=== PATIENT | male | born 1965 | race Caucasian/White ===

== ENCOUNTER 2017-02-12 19:51 | Observation (INO) | payer MEDICARE, OTHER ==
[2017-02-12 19:55] VITALS: BMI 32.5
[2017-02-12 20:00] VITALS: TEMP 98.5
[2017-02-12] MEDS ORDERED: Sodium Chloride 0.9% 1,000 ML IV STA (20:05)
[2017-02-12 20:26] LABS: ADD MANUAL DIFF? NO
[2017-02-12 20:31] LABS: VENOUS BLOOD GAS BASE EXCESS 5.1 mmol/L (0.0-2.0); VENOUS BLOOD PH 7.31 (7.32-7.43)
[2017-02-12 20:39] LABS: BASO # 0.02 K/mm3 (0.0-2.0); BASO % 0.4 % (0.0-3.0); EOS # 0.2 (0.0-0.7); EOS % 2.8 % (1.5-5.0); GRAN # 2.27 (1.4-6.5); HEMATOCRIT 41.5 % (42.0-52.0); LYMPH % 51.9 % (22.0-35.0); MEAN CORPUSCULAR HEMOGLOBIN 30.6 pg (25.0-35.0); MEAN PLATELET VOLUME 11.1 fl (7.0-11.0); MONO # 0.3 (0.1-0.6); MONO % 4.9 % (1.0-6.0); PLATELET COUNT 160 10^3/uL (120.0-450.0); RED CELL DISTRIBUTION WIDTH 12.7 % (11.5-14.5); WHITE BLOOD COUNT 5.7 10^3/ul (4.5-11.0)
[2017-02-12 20:40] LABS: ALB/GLOB RATIO 1.4 (1.1-1.8); ALKALINE PHOSPHATASE 110 U/L (38-133); ALT/SGPT 46 U/L (7-56); AMYLASE 117 U/L (35-125); AST/SGOT 27 U/L (15-59); BILIRUBIN,TOTAL 1.1 mg/dL (0.2-1.3); BLOOD UREA NITROGEN 11 mg/dL (7-21); CALCIUM 9.4 mg/dL (8.4-10.5); CARBON DIOXIDE 29 mmol/L (21-33); CHLORIDE 104 mmol/L (98-107); GFR AFRICAN-AMERICAN > 60; GLUCOSE,RANDOM 93 mg/dL (70-110); LIPASE 221 U/L (23-300); POTASSIUM 4.1 mmol/L (3.6-5.0); SODIUM 142 mmol/L (132-148); TOTAL PROTEIN 7.6 g/dL (5.8-8.3)
--- NOTE | 2017-02-12 20:55 | ED PDOC ---
Arrival/HPI - General Historian: Patient - History of Present Illness Time/Duration: Other (3-4 days) Symptom Course: Intermittent, Worsening Quality: Fullness - General Chief Complaint: GI Problem Time Seen by Provider: 02/12/17 20:00 - History of Present Illness Narrative History of Present Illness (Text): 02/12/17 20:49 52-year-old male presents today with a 3 to four-day history of abdominal pain. Patient states about 4 days ago he started with pain periumbilical and right lower quadrant. Patient states over the past few days the pain is intermittent. Patient states the pain feels like his belly is expanding and will explode. Patient with prior open abdominal surgery for gangrene. Denies chest pain or shortness of breath. Denies fevers or chills. Denies urinary symptoms. Patient complaining of hemorrhoids and painful defecation. No medications taken for pain at home. No other complaints (Azoia,Jessica T) Past Medical History - Provider Review Nursing Documentation Reviewed: Yes - Travel History Have you recently traveled outside [place] w/in the past 3 mons?: No - Past History Past History: No Previous - Infectious Disease Hx of Infectious Diseases: None - Tetanus Immunization Tetanus Immunization: Up to Date - Reproductive Currently : No - Cardiac Hx Hypertension: Yes Hx Pacemaker: No - Pulmonary Hx Respiratory Disorders: No - Neurological Hx Neurological Disorder: No - HEENT Hx HEENT Disorder: No - Renal Hx Renal Disorder: No - Endocrine/Metabolic Hx Endocrine Disorders: No - Hematological/Oncological Hx Blood Disorders: Yes Hx Blood Transfusions: Yes (1983 MULTILPE) - Integumentary Hx Dermatological Disorder: No - Musculoskeletal/Rheumatological Hx Musculoskeletal Disorders: Yes - Gastrointestinal Hx Gastrointestinal Disorders: Yes Other/Comment: Intestinal gangrene - Genitourinary/Gynecological Hx Genitourinary Disorders: No - Psychiatric Hx Psychophysiologic Disorder: No Hx Emotional Abuse: No Hx Physical Abuse: No Hx Substance Use: No - Surgical History Hx Cholecystectomy: Yes Other/Comment: Colon Resection - Anesthesia Hx Anesthesia: Yes Hx Anesthesia Reactions: No Hx Malignant Hyperthermia: No - Suicidal Assessment Feels Threatened In Home Enviroment: No Family/Social History - Physician Review Nursing Documentation Reviewed: Yes Family/Social History: Unknown Family HX Smoking Status: Never Smoked Hx Alcohol Use: Yes (BINGE DRINKING 3X MONTH- QUIT 5 YRS AGO) Frequency of alcohol use: Socially Hx Substance Use: No Hx Substance Use Treatment: No Allergies/Home Meds Allergies/Adverse Reactions: Allergies No Known Allergies Allergy (Verified 01/13/16 23:48) Home Medications: Home Meds Medication Instructions Recorded Confirmed amLODIPine [Norvasc] 5 mg PO QAM 04/11/15 02/12/17 Lisinopril [Prinivil] 1 tab PO DAILY 02/12/17 02/12/17 Review of Systems - Review of Systems Constitutional: absent: Fatigue, Fevers Respiratory: absent: SOB, Cough Cardiovascular: absent: Chest Pain, Palpitations Gastrointestinal: Abdominal Pain, Nausea, Hematochezia. absent: Constipation, Diarrhea, Vomiting, Appetite Changes Genitourinary Male: absent: Dysuria, Frequency, Hematuria Musculoskeletal: absent: Arthralgias, Neck Pain Skin: absent: Rash, Pruritis Neurological: absent: Headache, Dizziness Physical Exam Vital Signs Reviewed: Yes Temperature: Afebrile Blood Pressure: Normal Pulse: Regular Respiratory Rate: Normal Appearance: Positive for: Well-Appearing, Non-Toxic, Comfortable Pain Distress: None Mental Status: Positive for: Alert and Oriented X 3 - Systems Exam Head: Present: Atraumatic Mouth: Present: Moist Mucous Membranes Neck: Present: Normal Range of Motion Respiratory/Chest: Present: Clear to Auscultation, Good Air Exchange. No: Respiratory Distress, Accessory Muscle Use Cardiovascular: Present: Regular Rate and Rhythm, Normal S1, S2. No: Murmurs Abdomen: Present: Tenderness (+ diffuse tenderness; ), Normal Bowel Sounds. No : Distention, Peritoneal Signs, Rebound, Guarding Back: Present: Normal Inspection. No: CVA Tenderness, Midline Tenderness Neurological: Present: GCS=15, CN II-XII Intact, Speech Normal Skin: Present: Warm, Dry Psychiatric: Present: Alert, Oriented x 3 Medical Decision Making ED Course and Treatment: 02/12/17 21:02 Patient is nontoxic well appearing with stable vital signs presenting with 3-4 day history of abdominal pain CBC wnl CMP wnl Amylase wnl Lipase wnl Urinalysis: wnl EKG sinus rhythm with first-degree AV block at 64 bpm normal axis normal intervals no ST elevations CAT scan:FINDINGS: Lower thorax: No acute findings. ABDOMEN: Liver: The liver is heterogenous in appearance. Gallbladder and bile ducts: Status post cholecystectomy. No ductal dilation. Pancreas: Pancreas evaluation is limited. No ductal dilation. Spleen: Unremarkable. No splenomegaly. Adrenals: Unremarkable. No mass. Kidneys and ureters: 1.8 cm indeterminate lesion in the lower pole of the right kidney. Diagnostic considerations are complex cyst versus solid lesion is not excluded. Further evaluation is advised. Sub centimeter low-density lesion in the kidney is cannot be characterized. Non- obstructing tiny calculus is noted in the left kidney. Stomach and bowel: Bowel evaluation limited there is mild wall thickening noted involving the distal small bowel , under distended. However in appropriate clinical setting enteritis is not excluded. Appendix: No findings to suggest acute appendicitis. PELVIS: Bladder: There is slight focal wall thickening of the bladder anterolaterally. Ultrasound correlation is advised Reproductive: Unremarkable as visualized. ABDOMEN and PELVIS: Intraperitoneal space: Unremarkable. No free air. No significant fluid collection. Bones/joints: No acute fracture. No dislocation. Soft tissues: Bilateral inguinal hernias containing fat. Vasculature: Unremarkable. No abdominal aortic aneurysm. Lymph nodes: Unremarkable. No enlarged lymph nodes. IMPRESSION: 1. 1.8 cm indeterminate lesion in the lower pole of the right kidney. Diagnostic considerations are complex cyst versus solid lesion is not excluded. Further evaluation is advised. 2. There is slight focal wall thickening of the bladder anterolaterally. Ultrasound correlation is advised . there is mild wall thickening noted involving the distal small bowel , under distended. However in appropriate clinical setting ,enteritis is not excluded. Patient reassessment: pt feeling better after medications. Discussed all results with patient in depth. advised f/u with pmd regarding CT findings of lesions on right kidney; advised immediate return if symptoms worsen ,persist or if new symptoms develop. Patient verbalizes understanding of discharge instructions and need for immediate followup. all aspects of this case were discussed the attending of record. Impression: Abdominal pain, kidney lesion Motrin every 6 hours as needed for pain Increase fluids Follow up with primary care physician within the next 2 days Return immediately if symptoms worsen persist or if new symptoms develop: High fevers, increasing pain, vomiting, diarrhea or any other concerning symptoms develop (Jessica Nassar) - RAD Interpretation Radiology Orders: 02/12/17 20:05 ABD & PELVIS IV CONTRAST ONLY [CT] Stat - Medication Orders Current Medication Orders: Discontinued Medications Sodium Chloride (Sodium Chloride 0.9%) 1,000 mls @ 999 mls/hr IV .Q1H1M STA Stop: 02/12/17 21:05 Last Admin: 02/12/17 20:27 Dose: 999 mls/hr Iohexol (Omnipaque 350 100 Ml) Confirm Administered Dose 350 mg .ROUTE .STK-MED ONE Stop: 02/12/17 21:08 Ketorolac Tromethamine (Toradol) 30 mg IVP STAT STA Stop: 02/12/17 20:06 Last Admin: 02/12/17 20:27 Dose: 30 mg Re-Assess: NAVIN Pain Assessment Document 02/12/17 21:27 HI (Rec: 02/12/17 21:35 ND [id number]) Pain Reassessment Is this a pain reassessment? Yes Sleep Is patient sleeping during reassessment? No Presence of Pain Presence of Pain No ED OBSERVATION Discharge: Yes Date of observation admission: 02/12/17 Time of observation admission: 20:05 - Observation admission statement Patient is being placed in observation because:: abdominal pain (Jessica Nassar) - Goals of Observation Goals of observation are:: improvement in pain (Jessica Nassar) - Progress Note Progress Note: 02/13/17 22:00 pt non toxic well appearing; no distress. 02/13/17 00:03 pt feeling better; vitals stable; discussed all results. advised f/u with pmd. ( Jessica Nassar) Disposition/Present on Arrival - Present on Arrival Any Indicators Present on Arrival: No History of DVT/PE: No History of Uncontrolled Diabetes: No Urinary Catheter: No History of Decub. Ulcer: No History Surgical Site Infection Following: None - Disposition Have Diagnosis and Disposition been Completed?: Yes Disposition Time: 00:03 Patient Plan: Discharge - Disposition Diagnosis: Abdominal pain, Kidney lesion Disposition: HOME/ ROUTINE Condition: GOOD
[2017-02-12] MEDS ORDERED: Iohexol 350 MG/100 ML VIAL ONE (21:07)
[2017-02-12 23:12] LABS: URINE BILIRUBIN NEGATIVE (NEGATIVE); URINE BLOOD NEGATIVE (NEGATIVE); URINE GLUCOSE (UA) NEGATIVE (NEGATIVE); URINE KETONE NEGATIVE (NEGATIVE); URINE LEUKOCYTE ESTERASE NEGATIVE Leu/uL (NEGATIVE); URINE PROTEIN NEGATIVE mg/dL (<30 mg/dL); URINE UROBILINOGEN 0.2 E.U./dL (<1 E.U./dL)
[2017-02-12 23:17] VITALS: BP 138/84; PULSE 61; RESP 16; O2SAT 99
[2017-02-12 23:38] LABS: URINE APPEARANCE CLEAR (CLEAR); URINE COLOR YELLOW (YELLOW)
--- NOTE | 2017-02-13 08:28 | CT ---
PROCEDURE: CT Abdomen and Pelvis with contrast HISTORY: abd pain x 3-4 days, periumbilical, right sided COMPARISON: 01/14/2016. TECHNIQUE: Contrast dose: 100 cc of Omnipaque 350 Radiation dose: Total exam DLP = 1225 mGy-cm. This CT exam was performed using one or more of the following dose reduction techniques: Automated exposure control, adjustment of the mA and/or kV according to patient size, and/or use of iterative reconstruction technique. FINDINGS: LOWER THORAX: Unremarkable. LIVER: Unremarkable. No gross lesion or ductal dilatation. GALLBLADDER AND BILE DUCTS: Cholecystectomy. PANCREAS: Unremarkable. No gross lesion or ductal dilatation. SPLEEN: Unremarkable. ADRENALS: Unremarkable. No mass. KIDNEYS AND URETERS: 2 centimeter right lower pole renal cyst.. No hydronephrosis. No solid mass. VASCULATURE: Unremarkable. No aortic aneurysm. BOWEL: Unremarkable. No obstruction. No gross mural thickening. APPENDIX: Normal appendix. PERITONEUM: Unremarkable. No free fluid. No free air. LYMPH NODES: Unremarkable. No enlarged lymph nodes. BLADDER: Unremarkable. REPRODUCTIVE: Unremarkable. BONES: No acute fracture. OTHER FINDINGS: None. IMPRESSION: 2 centimeter right lower pole renal cyst..
--- NOTE | 2017-02-13 09:41 | RAD ---
PROCEDURE: CHEST RADIOGRAPH, 1 VIEW HISTORY: abd pain COMPARISON: None available. FINDINGS: LUNGS: Clear. PLEURA: No pneumothorax or pleural fluid seen. CARDIOVASCULAR: Mild cardiomegaly. Mild aortic tortuosity OSSEOUS STRUCTURES: Old rib fracture on the left VISUALIZED UPPER ABDOMEN: Normal. OTHER FINDINGS: None. IMPRESSION: No active disease.
--- NOTE | 2017-02-13 12:08 | CARD ---
APPROVED REPORT EKG Measurement Heart [id number] <Conclusion> Sinus rhythm with 1st degree AV block Otherwise normal ECG
== END 2017-02-13 00:04 | disposition home or self-care (01) ==
LOC: ED 19:51 → EROBSV 20:05
PROVIDERS: ADMIT Emergency Medicine; ATTEND Emergency Medicine
DX: N28.9 Disorder of kidney and ureter, unspecified (principal); R10.9 Unspecified abdominal pain
CPT/HCPCS: 71010; 74177; 80053; 81003; 82150; 82803; 83690; 85025; 93005; 96374; 99283; G0378; J1885; J7040; Q9967

== ENCOUNTER 2017-06-12 07:46 | Day surgery (SDC) | payer MEDICARE, OTHER ==
[2017-06-04 11:06] VITALS: BMI 33.8
[2017-06-12] MEDS ORDERED: Sodium Chloride 0.9% 1,000 ML IV SCH (09:15)
[2017-06-12] MEDS ORDERED: Midazolam 2 MG/2 ML VIAL ONE (09:52)
[2017-06-12] MEDS ORDERED: Propofol 10 mg/ml Inj (20 ML) ONE ×2 (09:52→10:06)
[2017-06-12 11:13] VITALS: TEMP 97.9; O2SAT 98
[2017-06-12 11:36] VITALS: RESP 18
[2017-06-12 12:22] VITALS: BP 121/72; PULSE 62
== END 2017-06-12 11:33 | disposition home or self-care (01) ==
LOC: ENDO 07:46
PROVIDERS: ATTEND Specialist
DX: Z12.11 Encounter for screening for malignant neoplasm of colon (principal); K64.8 Other hemorrhoids
CPT/HCPCS: 45378; J2250; J2704; J7040 ×2

== ENCOUNTER 2017-07-21 07:33 | Day surgery (SDC) | payer MEDICARE, OTHER ==
[2017-06-25 10:46] VITALS: BMI 33.8
[2017-07-21] MEDS ORDERED: Propofol 10 mg/ml Inj (20 ML) ONE (09:22)
[2017-07-21] MEDS ORDERED: Midazolam 2 MG/2 ML VIAL ONE (09:22)
[2017-07-21] MEDS ORDERED: Bupivacaine 0.5% Inj(30mL) ONE (09:24)
[2017-07-21] MEDS ORDERED: Lidocaine 1% Inj (20ml) ONE (09:25)
[2017-07-21] MEDS ORDERED: Bacitracin Ointment 30 GM TUBE ONE (10:01)
[2017-07-21] MEDS ORDERED: Lactated Ringer's 1,000 ML IV SCH (10:15)
--- NOTE | 2017-07-21 10:19 | PCM.SURG1 ---
Surgeon's Initial Post Op Note - Surgeon's Notes Surgeon: Emmanuel Stock Parts Inspector: PGY4, Luz Marina PGY1 Type of Anesthesia: MAC Pre-Operative Diagnosis: Internal Hemrrhoid Operative Findings: Anal Fissure Post-Operative Diagnosis: Anal stenosis, anal fissure Operation Performed: Posterolateral sphincterotomy Specimen/Specimens Removed: none Estimated Blood Loss: EBL {In ML}: 1 Blood Products Given: N/A Drains Used: No Drains Post-Op Condition: Good Date of Surgery/Procedure: 07/21/17 Time of Surgery/Procedure: 10:18
[2017-07-21 11:01] VITALS: O2SAT 98
[2017-07-21] MEDS ORDERED: Oxycodone/Acetaminophen 5/325 mg Tab PO STA (11:41)
[2017-07-21] MEDS ORDERED: Oxycodone/Acetaminophen 5/325 mg Tab ONE (11:44)
[2017-07-21 11:50] VITALS: BP 121/73; RESP 18
[2017-07-21 12:30] VITALS: PULSE 64; TEMP 98
--- NOTE | 2017-07-25 10:34 | OP ---
PROCEDURE DATE: 07/21/2017 PREOPERATIVE DIAGNOSIS: Anal fissure with hemorrhoid. SURGEON: Kiran Benitez MD DESCRIPTION OF PROCEDURE: In the operating room, the patient was identified by name, name of the procedure, laterality, and my jovanni. The patient was placed in lithotomy position and there were large external tags. Internally, there were several internal hemorrhoids, but posteriorly you could see an open area of a tear. The sigmoidoscopy was otherwise unremarkable. Anoscopy was otherwise unremarkable. There was a small internal hemorrhoid that was left in-situ. Posteriorly, you could see an ulcer that was clean based with some granulation, but mostly open, clearly the source of the pain. A lateral sphincterotomy was performed injecting the area with 30 mL of 0.25 Marcaine with epinephrine and a block on either side. An 11 blade was then plunged into the area posterolaterally and seen to close the cut through lateral edge of the muscle very nicely. This was done in a closed position. Bleeding responded to an external stitch of 0 chromic. There was anal stenosis that was dilated with two fingers. Ointments were applied and the patient was taken to recovery room in good condition. All instruments and counts were correct. Kiran Benitez MD
== END 2017-07-21 12:30 | disposition home or self-care (01) ==
LOC: SDS 07:33
PROVIDERS: ATTEND Surgery
DX: K60.2 Anal fissure, unspecified (principal); K62.4 Stenosis of anus and rectum; K64.8 Other hemorrhoids; K64.4 Residual hemorrhoidal skin tags
CPT/HCPCS: 46080; J0690; J1885; J2001; J2250; J2704; J3010; J7120 ×2

== ENCOUNTER 2017-10-30 15:16 | Emergency (ER) | payer MEDICARE, OTHER ==
[2017-10-30 15:16] VITALS: BMI 33.8
--- NOTE | 2017-10-30 15:50 | ED PDOC ---
Arrival/HPI - General Chief Complaint: Lower Extremity Problem/Injury Time Seen by Provider: 10/30/17 15:41 Historian: Patient - History of Present Illness Narrative History of Present Illness (Text): 10/30/17 15:47 A 52 year old male presents to the emergency department complaining of bilateral leg swelling for the past 2 weeks. Patient reports his symptoms began shortly after rotator cuff surgery performed on 10/17/17. Patient denies any fever, chills, nausea, vomiting, abdominal pain, chest pain, shortness of breath , or any other complaints. He reports that his surgeon told him that he could get some leg swelling after surgery 10/30/17 19:37 Time/Duration: Other (2 weeks) Symptom Course: Unchanged Past Medical History - Provider Review Nursing Documentation Reviewed: Yes - Past History Past History: No Previous - Infectious Disease Hx of Infectious Diseases: None - Tetanus Immunization Tetanus Immunization: Up to Date - Cardiac Hx Cardiac Disorders: Yes Hx Hypertension: Yes - Pulmonary Hx Respiratory Disorders: No - Neurological Hx Neurological Disorder: No - HEENT Hx HEENT Disorder: No - Renal Hx Renal Disorder: No - Endocrine/Metabolic Hx Endocrine Disorders: No - Hematological/Oncological Hx Blood Disorders: Yes Hx Blood Transfusions: Yes (1983) - Integumentary Hx Dermatological Disorder: No - Musculoskeletal/Rheumatological Hx Musculoskeletal Disorders: Yes Hx Fractures: Yes Other/Comment: L SHOULDER INJURY - Gastrointestinal Hx Gastrointestinal Disorders: Yes Other/Comment: Intestinal gangrene - Genitourinary/Gynecological Hx Genitourinary Disorders: No - Psychiatric Hx Psychophysiologic Disorder: Yes Hx Bipolar Disorder: Yes Hx Substance Use: No - Surgical History Hx Orthopedic Surgery: Yes (L SHOULDER) Other/Comment: R/T TRAUMA - Anesthesia Hx Anesthesia: Yes Hx Anesthesia Reactions: No Hx Malignant Hyperthermia: No - Suicidal Assessment Feels Threatened In Home Enviroment: No Family/Social History - Physician Review Nursing Documentation Reviewed: Yes Family/Social History: No Known Family HX Smoking Status: Never Smoked Hx Alcohol Use: Yes (BINGE DRINKING 3X MONTH- QUIT OVER 5 YRS AGO) Hx Substance Use: No Hx Substance Use Treatment: No Allergies/Home Meds Allergies/Adverse Reactions: Allergies No Known Allergies Allergy (Verified 10/30/17 15:20) Home Medications: Home Meds Medication Instructions Recorded Confirmed oxyCODONE/Acetaminophen [Percocet 1 tab PO Q4 PRN 07/21/17 10/30/17 5/325 mg Tab] Divalproex [Depakote DR(*BID*)] 500 mg PO TID 10/30/17 10/30/17 Review of Systems - Physician Review All systems were reviewed & negative as marked: Yes - Review of Systems Constitutional: absent: Fevers, Night Sweats Respiratory: absent: SOB Cardiovascular: absent: Chest Pain Gastrointestinal: absent: Abdominal Pain, Nausea, Vomiting Skin: Other (Bilateral leg swelling) Physical Exam Vital Signs Reviewed: Yes Vital Signs Temp Pulse Resp BP Pulse Ox 10/30/17 17:16 98 F 71 18 122/90 99 10/30/17 16:08 134/93 H 10/30/17 15:23 99.1 F 97 H 16 116/77 95 Temperature: Afebrile Blood Pressure: Normal Pulse: Tachycardic Respiratory Rate: Normal Appearance: Positive for: Well-Appearing, Non-Toxic, Comfortable Pain Distress: None Mental Status: Positive for: Alert and Oriented X 3 - Systems Exam Head: Present: Atraumatic, Normocephalic Pupils: Present: PERRL Extroacular Muscles: Present: EOMI Conjunctiva: Present: Normal Mouth: Present: Moist Mucous Membranes Respiratory/Chest: Present: Clear to Auscultation, Good Air Exchange. No: Respiratory Distress, Accessory Muscle Use Cardiovascular: Present: Regular Rate and Rhythm, Normal S1, S2. No: Murmurs Abdomen: Present: Normal Bowel Sounds. No: Tenderness, Distention, Peritoneal Signs Upper Extremity: Present: Normal Inspection. No: Cyanosis, Edema Lower Extremity: Present: Edema (Bilateral pitting edema), NORMAL PULSES. No: CALF TENDERNESS Neurological: Present: GCS=15, CN II-XII Intact, Speech Normal Skin: Present: Warm, Dry, Normal Color. No: Rashes Psychiatric: Present: Alert, Oriented x 3, Normal Insight, Normal Concentration Medical Decision Making ED Course and Treatment: 10/30/17 15:47 Impression: A 52 year old male with bilateral lower extremity swelling. No chest pain or shortness of breath. Plan: -- Duplex lower extremity ultrasound -- Chest xray -- EKG -- Labs -- Lasix -- Reassess and disposition Progress Notes: Report Date : 10/30/2017 16:14:47 Procedure: Chest xray Dictator : Stanford Purdy MD IMPRESSION: No active disease. EKG shows NSR at 81bpm with 1st degree AV block. Otherwise WNL 10/30/17 18:13 DVT study negative b/l. Chemistry WNL. BNP WNL. Patient was told that this could happen post-op and reports that he has not been compliant with elevation and rest as recommended.. Some improvement after lasix - Lab Interpretations Lab Results: 10/30/17 15:55 10/30/17 15:55 Lab Results 10/30/17 15:55: Sodium 143, Potassium 3.6, Chloride 105, Carbon Dioxide 30, Anion Gap 11, BUN 16, Creatinine 1.0, Est GFR ( Amer) > 60, Est GFR (Non- Af Amer) > 60, Random Glucose 100, Calcium 9.9, Total Bilirubin 0.5, AST 47, ALT 56, Alkaline Phosphatase 96, Troponin I < 0.01, NT-Pro-B Natriuret Pep 43.6 , Total Protein 6.8, Albumin 3.9, Globulin 2.9, Albumin/Globulin Ratio 1.4 10/30/17 15:55: WBC 6.3 D, RBC 4.16, Hgb 12.5 L, Hct 38.2 L, MCV 91.8, MCH 30.0 , MCHC 32.7, RDW 12.7, Plt Count 172, MPV 11.1 H, Gran % 54.5, Lymph % (Auto) 37.5 H, [place] % (Auto) 6.5 H, Eos % (Auto) 1.3 L, Baso % (Auto) 0.2, Gran # 3.43 , Lymph # (Auto) 2.4, [place] # (Auto) 0.4, Eos # (Auto) 0.1, Baso # (Auto) 0.01 - RAD Interpretation Radiology Orders: 10/30/17 15:47 CHEST PORTABLE [RAD] Stat DUPLEX LOWER EXTRM VEIN BILAT [US] Stat - Medication Orders Current Medication Orders: Discontinued Medications Furosemide (Lasix) 40 mg IVP STAT STA Stop: 10/30/17 15:48 Last Admin: 10/30/17 16:08 Dose: 40 mg MAR Blood Pressure Document 10/30/17 16:08 LA (Rec: 10/30/17 16:13 CODY [id number]) Blood Pressure Blood Pressure (100/60-150/90) 134/93 IVP Administration Document 10/30/17 16:08 CODY (Rec: 10/30/17 16:13 CODY [id number]) Charges for Administration # of IVP Administrations 1 - Scribe Statement The provider has reviewed the documentation as recorded by the Scribe Sobia Hewitt Provider Scribe Attestation: All medical record entries made by the Scribe were at my direction and personally dictated by me. I have reviewed the chart and agree that the record accurately reflects my personal performance of the history, physical exam, medical decision making, and the department course for this patient. I have also personally directed, reviewed, and agree with the discharge instructions and disposition. Disposition/Present on Arrival - Present on Arrival Any Indicators Present on Arrival: No History of DVT/PE: No History of Uncontrolled Diabetes: No Urinary Catheter: No History of Decub. Ulcer: No History Surgical Site Infection Following: None - Disposition Have Diagnosis and Disposition been Completed?: Yes Diagnosis: Lower extremity edema Disposition: HOME/ ROUTINE Disposition Time: 18:13 Patient Plan: Discharge Condition: GOOD Discharge Instructions (ExitCare): Dependent Edema (DC) Additional Instructions: Follow-up with PMD within 2 days. Return to ED if condition worsens. Keep legs elevated Referrals: Carly Rolon, [Primary Care Provider] - Follow up with primary Forms: [employer] ([place])
--- NOTE | 2017-10-30 16:16 | RAD ---
HISTORY: leg swelling COMPARISON: 10/02/2017 FINDINGS: LUNGS: No active pulmonary disease. PLEURA: No significant pleural effusion identified, no pneumothorax apparent. CARDIOVASCULAR: Normal. OSSEOUS STRUCTURES: Deformity of left chest wall with old fracture of left 6th rib. VISUALIZED UPPER ABDOMEN: Normal. OTHER FINDINGS: None. IMPRESSION: No active disease.
[2017-10-30 16:17] LABS: BASO # 0.01 K/mm3 (0.0-2.0); BASO % 0.2 % (0.0-3.0); EOS # 0.1 (0.0-0.7); EOS % 1.3 % (1.5-5.0); GRAN # 3.43 (1.4-6.5); GRAN % 54.5 % (50.0-68.0); HEMOGLOBIN 12.5 g/dL (14.0-18.0); LYMPH # 2.4 (1.2-3.4); LYMPH % 37.5 % (22.0-35.0); MEAN CELL VOLUME 91.8 fl (80.0-105.0); MEAN CORPUSCULAR HGB CONC 32.7 g/dl (31.0-37.0); MEAN PLATELET VOLUME 11.1 fl (7.0-11.0); MONO # 0.4 (0.1-0.6); MONO % 6.5 % (1.0-6.0); RBC 4.16 10^6/uL (3.5-6.1); RED CELL DISTRIBUTION WIDTH 12.7 % (11.5-14.5); WHITE BLOOD COUNT 6.3 10^3/ul (4.5-11.0)
[2017-10-30 16:35] LABS: ALB/GLOB RATIO 1.4 (1.1-1.8); ALBUMIN 3.9 g/dL (3.0-4.8); ALT/SGPT 56 U/L (7-56); AST/SGOT 47 U/L (17-59); BLOOD UREA NITROGEN 16 mg/dL (7-21); CALCIUM 9.9 mg/dL (8.4-10.5); GFR AFRICAN-AMERICAN > 60; GFR NON-AFRICAN AMERICAN > 60
[2017-10-30 16:39] LABS: B-TYPE NATRIURETIC PEPTIDE 43.6 pg/mL (0-450); TROPONIN I < 0.01 ng/mL
[2017-10-30 18:34] VITALS: BP 122/90; PULSE 71; RESP 18; TEMP 98; O2SAT 99
--- NOTE | 2017-10-30 22:01 | US ---
HISTORY: Leg pain and swelling. Evaluate for DVT PHYSICIAN(S): Stanford Carson MD. TECHNIQUE: Duplex sonography and color-flow Doppler with graded compression were used to evaluate the deep venous systems of both lower extremities. FINDINGS: The visualized deep venous systems of both lower extremities are sonographically normal and compressible. Normal wave forms and augmentation are seen. There is no sonographic evidence for deep venous thrombosis in the visualized segments of both lower extremities. IMPRESSION: No sonographic evidence for deep venous thrombosis in the visualized segments of both lower extremities.
== END 2017-10-30 18:33 | disposition home or self-care (01) ==
LOC: ED 15:16
DX: R60.0 Localized edema (principal); I10 Essential (primary) hypertension
CPT/HCPCS: 71045; 80053; 83880; 84484; 85025; 93970; 96374; 99284; J1940

== ENCOUNTER 2018-01-29 02:32 | Emergency (ER) | payer MEDICARE, OTHER ==
[2018-01-29 02:41] VITALS: BMI 30.7
--- NOTE | 2018-01-29 02:56 | ED PDOC ---
Arrival/HPI - General Chief Complaint: Abnormal Skin Integrity Time Seen by Provider: 01/29/18 02:40 Historian: Patient - History of Present Illness Narrative History of Present Illness (Text): 01/29/18 02:55 Nael Reina is a 52 year old male, whose past medical history includes hypertension, who presents to the Emergency department complaining of a dry, cracked callus to the left heel for the last few months. Patient denies any history of trauma/injury, redness to the area, weakness/numbness/tingling in the extremity, or any other complaints. Symptom Onset: Gradual Symptom Course: Unchanged Activities at Onset: Light Context: Home Past Medical History - Provider Review Nursing Documentation Reviewed: Yes - Past History Past History: No Previous - Infectious Disease Hx of Infectious Diseases: None - Tetanus Immunization Tetanus Immunization: Up to Date - Cardiac Hx Cardiac Disorders: Yes Hx Hypertension: Yes - Pulmonary Hx Respiratory Disorders: No - Neurological Hx Neurological Disorder: No - HEENT Hx HEENT Disorder: No - Renal Hx Renal Disorder: No - Endocrine/Metabolic Hx Endocrine Disorders: No - Hematological/Oncological Hx Blood Disorders: Yes Hx Blood Transfusions: Yes (1984) - Integumentary Hx Dermatological Disorder: No - Musculoskeletal/Rheumatological Hx Musculoskeletal Disorders: Yes Hx Fractures: Yes Other/Comment: L SHOULDER INJURY - Gastrointestinal Hx Gastrointestinal Disorders: Yes Other/Comment: Intestinal gangrene - Genitourinary/Gynecological Hx Genitourinary Disorders: No - Psychiatric Hx Psychophysiologic Disorder: Yes Hx Bipolar Disorder: Yes Hx Substance Use: No - Surgical History Hx Orthopedic Surgery: Yes (L SHOULDER) Other/Comment: R/T TRAUMA - Anesthesia Hx Anesthesia: Yes Hx Anesthesia Reactions: No Hx Malignant Hyperthermia: No - Suicidal Assessment Feels Threatened In Home Enviroment: No Family/Social History - Physician Review Nursing Documentation Reviewed: Yes Family/Social History: Unknown Family HX Smoking Status: Never Smoked Hx Alcohol Use: Yes (BINGE DRINKING 3X MONTH- QUIT OVER 5 YRS AGO) Hx Substance Use: No Hx Substance Use Treatment: No Allergies/Home Meds Allergies/Adverse Reactions: Allergies No Known Allergies Allergy (Verified 01/29/18 02:42) Home Medications: Home Meds Medication Instructions Recorded Confirmed oxyCODONE/Acetaminophen [Percocet 1 tab PO Q4 PRN 07/21/17 10/30/17 5/325 mg Tab] Divalproex [Depakote DR(*BID*)] 500 mg PO TID 10/30/17 10/30/17 Review of Systems - Physician Review All systems were reviewed & negative as marked: Yes - Review of Systems Constitutional: Normal. absent: Fevers Eyes: Normal ENT: Normal Respiratory: Normal. absent: SOB, Cough Cardiovascular: Normal. absent: Chest Pain Gastrointestinal: Normal. absent: Abdominal Pain, Diarrhea, Nausea, Vomiting Genitourinary Male: Normal. absent: Dysuria, Frequency, Hematuria, Urinary Output Changes Musculoskeletal: Normal. absent: Back Pain, Neck Pain Skin: Other (+dry, cracked callus). absent: Rash Neurological: Normal. absent: Headache, Dizziness Endocrine: Normal Hemo/Lymphatic: Normal Psychiatric: Normal Physical Exam Vital Signs Reviewed: Yes Vital Signs Pulse Resp BP Pulse Ox 01/29/18 03:05 68 18 120/79 98 Temperature: Afebrile Blood Pressure: Normal Pulse: Regular Respiratory Rate: Normal Appearance: Positive for: Well-Appearing, Non-Toxic, Comfortable Pain Distress: None Mental Status: Positive for: Alert and Oriented X 3 - Systems Exam Head: Present: Atraumatic, Normocephalic Pupils: Present: PERRL Extroacular Muscles: Present: EOMI Conjunctiva: Present: Normal Mouth: Present: Moist Mucous Membranes Neck: Present: Normal Range of Motion Lower Extremity: Present: Other (Dry skin fissure throught left calloused heel) . No: Edema Neurological: Present: GCS=15, CN II-XII Intact, Speech Normal Skin: Present: Warm, Dry, Normal Color. No: Rashes Psychiatric: Present: Alert, Oriented x 3, Normal Insight, Normal Concentration Medical Decision Making ED Course and Treatment: 01/29/18 02:55 Impression: 52 year old male complaining of a dry, cracked callus to left heel. Differential Diagnosis included but are not limited to: skin fissure vs. callous Plan: -- Reassess and disposition Progress Notes: - Scribe Statement The provider has reviewed the documentation as recorded by the Scriblashanda Vargas All medical record entries made by the Scribe were at my direction and personally dictated by me. I have reviewed the chart and agree that the record accurately reflects my personal performance of the history, physical exam, medical decision making, and the department course for this patient. I have also personally directed, reviewed, and agree with the discharge instructions and disposition. Disposition/Present on Arrival - Present on Arrival Any Indicators Present on Arrival: No History of DVT/PE: No History of Uncontrolled Diabetes: No Urinary Catheter: No History of Decub. Ulcer: No History Surgical Site Infection Following: None - Disposition Have Diagnosis and Disposition been Completed?: Yes Diagnosis: Foot callus, Skin fissure Disposition: HOME/ ROUTINE Disposition Time: 02:58 Patient Plan: Discharge Condition: GOOD Discharge Instructions (ExitCare): Corns and Calluses Additional Instructions: Apply emmolients i.e. Addie Lotion/skin creams to the area/follow up with the rag room supervisor this week Referrals: Deion Ash DPM [Staff Provider] - Follow up with primary Forms: [facility] (Bermudian), WORK NOTE
[2018-01-29 03:21] VITALS: BP 120/79; PULSE 68; RESP 18; O2SAT 98
== END 2018-01-29 03:05 | disposition home or self-care (01) ==
LOC: ED 02:32
DX: L84 Corns and callosities (principal); R23.4 Changes in skin texture

== ENCOUNTER 2018-12-20 11:04 | Emergency (ER) | payer MEDICARE, OTHER ==
[2018-12-20 11:16] VITALS: BMI 33.8
[2018-12-20 11:51] LABS: BASO # 0.01 K/mm3 (0.0-2.0); BASO % 0.2 % (0.0-3.0); EOS # 0.1 (0.0-0.7); EOS % 2.1 % (1.5-5.0); HEMOGLOBIN 13.6 g/dL (14.0-18.0); LYMPH # 1.8 (1.2-3.4); LYMPH % 41.4 % (22.0-35.0); MEAN CELL VOLUME 91.8 fl (80.0-105.0); MEAN CORPUSCULAR HEMOGLOBIN 30.3 pg (25.0-35.0); MONO # 0.2 (0.1-0.6); MONO % 4.2 % (1.0-6.0); RBC 4.49 10^6/uL (3.5-6.1); RED CELL DISTRIBUTION WIDTH 12.5 % (11.5-14.5); WHITE BLOOD COUNT 4.3 10^3/uL (4.5-11.0)
[2018-12-20 11:56] LABS: INR 1.09; PARTIAL THROMBOPLASTIN TIME 24.7 Seconds (26.9-38.3); PROTHROMBIN TIME 12.3 SECONDS (9.4-12.5)
--- NOTE | 2018-12-20 11:56 | ED PDOC ---
Arrival/HPI - General Chief Complaint: Abdominal Pain Time Seen by Provider: 12/20/18 11:13 Historian: Patient - History of Present Illness Narrative History of Present Illness (Text): 12/20/18 12:36 53 y/o male with PMH of HTN, gallstones presents to the ED c/o RLQ pain x 4 days. Pain is sharp, intermittent, worse with bending and lifting. Patient thinks he may have a hernia, states he had similar symptoms 10 years ago but ne willie had hernia repair surgery. Associated intermittent nausea and right groin pain/fullness. Denies fever, chills, chest pain, SOB, testicular pain/swelling, urinary symptoms, back pain, vomiting, SOB, cough, congestion, or any other associated complaints. Past Medical History - Provider Review Nursing Documentation Reviewed: Yes - Past History Past History: No Previous - Infectious Disease Hx of Infectious Diseases: None - Tetanus Immunization Tetanus Immunization: Up to Date - Cardiac Hx Cardiac Disorders: Yes Hx Hypertension: Yes - Pulmonary Hx Respiratory Disorders: No - Neurological Hx Neurological Disorder: No - HEENT Hx HEENT Disorder: No - Renal Hx Renal Disorder: No - Endocrine/Metabolic Hx Endocrine Disorders: No - Hematological/Oncological Hx Blood Disorders: Yes Hx Blood Transfusions: Yes (1984) - Integumentary Hx Dermatological Disorder: No - Musculoskeletal/Rheumatological Hx Musculoskeletal Disorders: Yes Hx Fractures: Yes Other/Comment: L SHOULDER INJURY - Gastrointestinal Hx Gastrointestinal Disorders: Yes Hx Gall Bladder Disease: Yes (stones) Other/Comment: Intestinal gangrene - Genitourinary/Gynecological Hx Genitourinary Disorders: No - Psychiatric Hx Psychophysiologic Disorder: Yes Hx Bipolar Disorder: Yes Hx Substance Use: No - Surgical History Hx Orthopedic Surgery: Yes (L SHOULDER) Other/Comment: R/T TRAUMA - Anesthesia Hx Anesthesia: Yes Hx Anesthesia Reactions: No Hx Malignant Hyperthermia: No - Suicidal Assessment Feels Threatened In Home Enviroment: No Family/Social History - Physician Review Nursing Documentation Reviewed: Yes Family/Social History: No Known Family HX Smoking Status: Never Smoked Hx Alcohol Use: Yes (BINGE DRINKING 3X MONTH- QUIT OVER 5 YRS AGO) Hx Substance Use: No Hx Substance Use Treatment: No Allergies/Home Meds Allergies/Adverse Reactions: Allergies No Known Allergies Allergy (Verified 12/20/18 11:06) Home Medications: Home Meds Medication Instructions Recorded Confirmed amLODIPine [Norvasc] 0 mg PO DAILY 12/20/18 12/20/18 Review of Systems - Review of Systems Constitutional: Normal. absent: Fevers Eyes: Normal. absent: Vision Changes ENT: Normal. absent: Sore Throat, Sinus Congestion Respiratory: Normal. absent: SOB, Cough Cardiovascular: Normal. absent: Chest Pain, Palpitations Gastrointestinal: Abdominal Pain, Nausea, Other (indigestion). absent: Vomiting Genitourinary Male: Other (right groin fullness). absent: Dysuria, Frequency Musculoskeletal: Normal. absent: Back Pain, Neck Pain Skin: Normal. absent: Rash Neurological: Normal. absent: Headache, Dizziness Physical Exam Vital Signs Reviewed: Yes Vital Signs Temp Pulse Resp BP Pulse Ox 12/20/18 11:09 97.7 F 55 L 19 144/82 97 Temperature: Afebrile Blood Pressure: Normal Pulse: Bradycardic Respiratory Rate: Normal Appearance: Positive for: Well-Appearing, Non-Toxic, Comfortable Pain Distress: None Mental Status: Positive for: Alert and Oriented X 3 - Systems Exam Head: Present: Atraumatic, Normocephalic Pupils: Present: PERRL Extroacular Muscles: Present: EOMI Conjunctiva: Present: Normal Mouth: Present: Moist Mucous Membranes Neck: Present: Normal Range of Motion. No: Meningeal Signs Respiratory/Chest: Present: Clear to Auscultation, Good Air Exchange. No: Respiratory Distress, Accessory Muscle Use Cardiovascular: Present: Regular Rate and Rhythm, Normal S1, S2, Peripheal Pulses Present Abdomen: Present: Tenderness (mild right groin and RLQ abdomen), Normal Bowel Sounds. No: Distention, Peritoneal Signs, Rebound, Guarding Genitourinary Male: Present: Normal External Genitalia, Hernias (right groin fullness, reducible). No: Lesions, Penile Discharge, Testicle Tenderness, Penile Swelling, Erythema, Testicle Swelling Back: Present: Normal Inspection. No: CVA Tenderness Upper Extremity: Present: Normal Inspection, Normal ROM, NORMAL PULSES, Neurovascularly Intact, Capillary Refill < 2s. No: Cyanosis, Edema, Temperature Abnormalties Lower Extremity: Present: Normal Inspection, NORMAL PULSES, Normal ROM, Neurovascularly Intact, Capillary Refill < 2 s. No: Edema, Temperature Abnormalties Neurological: Present: GCS=15, CN II-XII Intact, Speech Normal, Motor Func Grossly Intact, Normal Sensory Function, Gait Normal Skin: Present: Warm, Dry, Normal Color. No: Rashes Psychiatric: Present: Alert, Oriented x 3, Normal Insight, Normal Concentration, Normal Affect, Normal Mood Medical Decision Making ED Course and Treatment: Initial Plan: * CBC, CMP * Coags * Mg * Troponin * Lipase * EKG * CXR * Testicular US * Abd/Pelvis CT Patient refusing pain medication at this time. EKG shows sinus bradycardia at 52 with 1st degree AV block and incomplete RBBB; No STEMI, nonspecific ST/T wave changes; troponin neg Compared with prior EKG from Sep 2017 that shows bradycardia and 1st degree AV block without RBBB, similar 13:22 Bloodwork reviewed, unremarkable. No leukocytosis or electrolyte abnormalities. Urine unremarkable CXR shows no active disease CT shows constipation, bilateral inguinal hernias, and thickened bladder wall on the right side. Pt has no signs of infection in urine. Will recommend urology f/u. Ultrasound shows no torsion or findings of epididymitis/orchitis. Spoke with Dr. Rubio regarding diagnostic testing results. He states patient can be discharged home to followup in his office. Results faxed to Dr. Rubio's office. Advised pt of PMD, general surgery, and urology followup. Pt comfortable with discharge home. Educated on diet changes in constipation. Diagnostic testing results and plan of care discussed with patient. Strict instructions given regarding importance of followup, and signs/symptoms to return to ER including worsening pain, fever, or any other new/worsening symptoms. Pt verbalized understanding of discussion. Patient is A&Ox3, ambulating with steady gait, with vital signs stable for discharge. - Lab Interpretations Lab Results: 12/20/18 11:30 12/20/18 11:30 Lab Results 12/20/18 11:30: Sodium 144, Potassium 3.9, Chloride 106, Carbon Dioxide 31, Anion Gap 10, BUN 17, Creatinine 0.8, Est GFR ( Amer) > 60, Est GFR (Non- Af Amer) > 60, Random Glucose 97, Calcium 9.3, Total Bilirubin 1.0, AST 31, ALT 27, Alkaline Phosphatase 85, Troponin I < 0.01, Total Protein 7.0, Albumin 4.1, Globulin 2.9, Albumin/Globulin Ratio 1.4, Amylase 85, Lipase 143 12/20/18 11:30: Urine Color Yellow, Urine Appearance Clear, Urine pH 6.0, Ur Specific Rudy 1.015, Urine Protein Negative, Urine Glucose (UA) Negative, Urine Ketones Negative, Urine Blood Negative, Urine Nitrate Negative, Urine Bilirubin Negative, Urine Urobilinogen 0.2, Ur Leukocyte Esterase Negative 12/20/18 11:30: PT 12.3, INR 1.09, APTT 24.7 L 12/20/18 11:30: WBC 4.3 L, RBC 4.49, Hgb 13.6 L, Hct 41.2 L, MCV 91.8, MCH 30.3, MCHC 33.0, RDW 12.5, Plt Count 158, MPV 11.0, Neut % (Auto) 52.1, Lymph % (Auto) 41.4 H, [place] % (Auto) 4.2, Eos % (Auto) 2.1, Baso % (Auto) 0.2, Lymph # (Auto) 1.8, [place] # (Auto) 0.2, Eos # (Auto) 0.1, Baso # (Auto) 0.01, Absolute Neuts (auto) 2.24 I have reviewed the lab results: Yes - RAD Interpretation Narrative RAD Interpretations (Text): 12/20/18 13:09 12/20/18 11:30 12/20/18 11:30 Lab Results 12/20/18 11:30: Sodium 144, Potassium 3.9, Chloride 106, Carbon Dioxide 31, Anion Gap 10, BUN 17, Creatinine 0.8, Est GFR ( Amer) > 60, Est GFR (Non- Af Amer) > 60, Random Glucose 97, Calcium 9.3, Total Bilirubin 1.0, AST 31, ALT 27, Alkaline Phosphatase 85, Troponin I < 0.01, Total Protein 7.0, Albumin 4.1, Globulin 2.9, Albumin/Globulin Ratio 1.4, Amylase 85, Lipase 143 12/20/18 11:30: Urine Color Yellow, Urine Appearance Clear, Urine pH 6.0, Ur Specific Rudy 1.015, Urine Protein Negative, Urine Glucose (UA) Negative, Urine Ketones Negative, Urine Blood Negative, Urine Nitrate Negative, Urine Bilirubin Negative, Urine Urobilinogen 0.2, Ur Leukocyte Esterase Negative 12/20/18 11:30: PT 12.3, INR 1.09, APTT 24.7 L 12/20/18 11:30: WBC 4.3 L, RBC 4.49, Hgb 13.6 L, Hct 41.2 L, MCV 91.8, MCH 30.3, MCHC 33.0, RDW 12.5, Plt Count 158, MPV 11.0, Neut % (Auto) 52.1, Lymph % (Auto) 41.4 H, [place] % (Auto) 4.2, Eos % (Auto) 2.1, Baso % (Auto) 0.2, Lymph # (Auto) 1.8, [place] # (Auto) 0.2, Eos # (Auto) 0.1, Baso # (Auto) 0.01, Absolute Neuts (auto) 2.24 Testicular US: FINDINGS: RIGHT TESTICLE: Measures 2.6 x 4.9 cm. Normal echotexture and flow. RIGHT EPIDIDYMIS: Epididymal head measures 0.6 x 1.1 cm. Complex epididymal head cyst 3 x 4 mm. LEFT TESTICLE: Measures 2.2 x 2.8 x 4.6 cm. Normal echotexture and flow. LEFT EPIDIDYMIS: Epididymal head measures 0.8 x 0.7 cm. Complex presumed hemorrhagic or debris laden cyst in the left epididymal head. HYDROCELE: Small, bilateral right larger than left. VARICOCELE: Unilateral, left adjacent to the inferolateral aspect of the left testicle. OTHER FINDINGS: None. IMPRESSION: Negative study for epididymitis, orchitis, torsion or testicular mass. Small bilateral hydroceles right larger than left. Unilateral, left varicocele. Small complex bilateral epididymal head cysts. CXR: FINDINGS: LUNGS: No active pulmonary disease. PLEURA: No significant pleural effusion identified, no pneumothorax apparent. CARDIOVASCULAR: No atherosclerotic calcification present No radiographic findings to suggest acute or significant cardiovascular disease. OSSEOUS STRUCTURES: No significant abnormalities. Stable findings related to left 6th rib fracture. VISUALIZED UPPER ABDOMEN: Normal. OTHER FINDINGS: None. IMPRESSION: No active disease. No significant interval change compared to the prior examination(s). CT Abd/Pelvis: FINDINGS: LOWER THORAX: Unremarkable. LIVER: Hepatic steatosis. No focal masses. No intrahepatic bile duct dilatation or perihepatic ascites. GALLBLADDER AND BILE DUCTS: Status post cholecystectomy. No abnormality is seen in the gallbladder fossa. PANCREAS: Unremarkable. No gross lesion or ductal dilatation. SPLEEN: Unremarkable. ADRENALS: Unremarkable. No mass. KIDNEYS AND URETERS: Unremarkable. No hydronephrosis. No solid mass. Incidental finding(s): Simple cyst right kidney unchanged compared to the prior study. VASCULATURE: Unremarkable. No aortic aneurysm. No atherosclerotic calcification or mural plaque present. BOWEL: Constipation without fecal impaction or obstruction. Diverticulosis without an acute inflammatory component or other associated pathologic process. Postoperative findings related to colonic resection, stable findings compared to the prior study. APPENDIX: A normal appendix is visualized in it's entirety. PERITONEUM: Unremarkable. No free fluid. No free air. LYMPH NODES: Unremarkable. No enlarged lymph nodes. BLADDER: Asymmetrical bladder wall thickening on the right side with perivesical inflammatory change likely acute cystitis. REPRODUCTIVE: Unremarkable. BONES: No acute fracture. OTHER FINDINGS: Bilateral inguinal hernias unchanged compared to the prior study. IMPRESSION: Focal bladder wall thickening right superior lateral aspect of the urinary bladder. Findings likely represent acute cystitis. Additional benign and/or incidental findings described above. Radiology Orders: 12/20/18 11:24 ABD & PELVIS IV CONTRAST ONLY [CT] Stat CHEST PORTABLE [RAD] Stat 12/20/18 11:25 TESTES DUPLEX COMPLETE [US] Stat Tourist Information Assistant: Radiologist - EKG Interpretation EKG Interpretation (Text): Rate 52; Sinus bradycardia with 1st degree AV block; Incomplete RBBB; No STEMI or other signs of acute ischemia Interpreted by ED Physician: Yes Type: 12 lead EKG Comparison: Com.w/previous EKG (10/02/17) Disposition/Present on Arrival - Present on Arrival Any Indicators Present on Arrival: No History of DVT/PE: No History of Uncontrolled Diabetes: No Urinary Catheter: No History of Decub. Ulcer: No History Surgical Site Infection Following: None - Disposition Have Diagnosis and Disposition been Completed?: Yes Diagnosis: Inguinal hernia, Constipation, Bladder wall thickening Disposition: HOME/ ROUTINE Disposition Time: 13:40 Condition: GOOD Discharge Instructions (ExitCare): Inguinal and Femoral (Groin) Hernias, Constipation in Adults, Groin Hernia Repair (DC) Additional Instructions: Ibuprofen every 8 hours as needed for pain Rest, no strenuous activity or heavy lifting Followup with Dr. Rubio within 2 days Followup with urology within 2 days Followup with general surgery within 2 days Return to ER with any new/worsening symptoms Prescriptions: Ibuprofen [Motrin Tab] 600 mg PO Q8 #30 tab Referrals: Mikey Rubio DO [Staff Provider] - Follow up with primary Hakan Griffith MD [Staff Provider] - Follow up with primary Kiran Benitez MD [Staff Provider] - Follow up with primary Forms: [facility] (Norwegian), WORK NOTE
[2018-12-20 12:00] LABS: ALB/GLOB RATIO 1.4 (1.1-1.8); ALBUMIN 4.1 g/dL (3.0-4.8); ALT/SGPT 27 U/L (7-56); AMYLASE 85 U/L (35-125); AST/SGOT 31 U/L (17-59); BLOOD UREA NITROGEN 17 mg/dL (7-21); CALCIUM 9.3 mg/dL (8.4-10.5); GFR NON-AFRICAN AMERICAN > 60; LIPASE 143 U/L (23-300)
[2018-12-20 12:10] LABS: TROPONIN I < 0.01 ng/mL
[2018-12-20 12:24] LABS: URINE BILIRUBIN NEGATIVE (NEGATIVE); URINE BLOOD NEGATIVE (NEGATIVE); URINE GLUCOSE (UA) NEGATIVE (NEGATIVE); URINE LEUKOCYTE ESTERASE NEGATIVE Leu/uL (NEGATIVE); URINE PROTEIN NEGATIVE mg/dL (<30 mg/dL); URINE UROBILINOGEN 0.2 E.U./dL (<1 E.U./dL)
[2018-12-20 12:25] LABS: URINE APPEARANCE CLEAR (CLEAR); URINE COLOR YELLOW (YELLOW)
--- NOTE | 2018-12-20 12:37 | RAD ---
Date of service: 12/20/2018 HISTORY: Abdominal pain. COMPARISON: 10/30/2017. Portable chest FINDINGS: LUNGS: No active pulmonary disease. PLEURA: No significant pleural effusion identified, no pneumothorax apparent. CARDIOVASCULAR: No atherosclerotic calcification present No radiographic findings to suggest acute or significant cardiovascular disease. OSSEOUS STRUCTURES: No significant abnormalities. Stable findings related to left 6th rib fracture. VISUALIZED UPPER ABDOMEN: Normal. OTHER FINDINGS: None. IMPRESSION: No active disease. No significant interval change compared to the prior examination(s).
[2018-12-20 13:09] VITALS: RESP 16
--- NOTE | 2018-12-20 13:10 | CT ---
Date of service: 12/20/2018 PROCEDURE: CT Abdomen and Pelvis with contrast HISTORY: RLQ pain COMPARISON: 02/12/2017. CT abdomen and pelvis. December 20, 2018. Testicular ultrasound. TECHNIQUE: Intravenous contrast dose: 150 cc Omnipaque 350. Radiation dose: Total exam DLP = 955.31 mGy-cm. This CT exam was performed using one or more of the following dose reduction techniques: Automated exposure control, adjustment of the mA and/or kV according to patient size, and/or use of iterative reconstruction technique. FINDINGS: LOWER THORAX: Unremarkable. LIVER: Hepatic steatosis. No focal masses. No intrahepatic bile duct dilatation or perihepatic ascites. GALLBLADDER AND BILE DUCTS: Status post cholecystectomy. No abnormality is seen in the gallbladder fossa. PANCREAS: Unremarkable. No gross lesion or ductal dilatation. SPLEEN: Unremarkable. ADRENALS: Unremarkable. No mass. KIDNEYS AND URETERS: Unremarkable. No hydronephrosis. No solid mass. Incidental finding(s): Simple cyst right kidney unchanged compared to the prior study. VASCULATURE: Unremarkable. No aortic aneurysm. No atherosclerotic calcification or mural plaque present. BOWEL: Constipation without fecal impaction or obstruction. Diverticulosis without an acute inflammatory component or other associated pathologic process. Postoperative findings related to colonic resection, stable findings compared to the prior study. APPENDIX: A normal appendix is visualized in it's entirety. PERITONEUM: Unremarkable. No free fluid. No free air. LYMPH NODES: Unremarkable. No enlarged lymph nodes. BLADDER: Asymmetrical bladder wall thickening on the right side with perivesical inflammatory change likely acute cystitis. REPRODUCTIVE: Unremarkable. BONES: No acute fracture. OTHER FINDINGS: Bilateral inguinal hernias unchanged compared to the prior study. IMPRESSION: Focal bladder wall thickening right superior lateral aspect of the urinary bladder. Findings likely represent acute cystitis. Additional benign and/or incidental findings described above.
--- NOTE | 2018-12-20 13:18 | US ---
Date of service: 12/20/2018 HISTORY: right sided groin pain TECHNIQUE: Realtime sonography through the scrotum with color and doppler flow. COMPARISON: None Available. FINDINGS: RIGHT TESTICLE: Measures 2.6 x 4.9 cm. Normal echotexture and flow. RIGHT EPIDIDYMIS: Epididymal head measures 0.6 x 1.1 cm. Complex epididymal head cyst 3 x 4 mm. LEFT TESTICLE: Measures 2.2 x 2.8 x 4.6 cm. Normal echotexture and flow. LEFT EPIDIDYMIS: Epididymal head measures 0.8 x 0.7 cm. Complex presumed hemorrhagic or debris laden cyst in the left epididymal head. HYDROCELE: Small, bilateral right larger than left. VARICOCELE: Unilateral, left adjacent to the inferolateral aspect of the left testicle. OTHER FINDINGS: None. IMPRESSION: Negative study for epididymitis, orchitis, torsion or testicular mass. Small bilateral hydroceles right larger than left. Unilateral, left varicocele. Small complex bilateral epididymal head cysts.
[2018-12-20 14:07] VITALS: BP 142/80; PULSE 88; TEMP 98; O2SAT 99
--- NOTE | 2018-12-20 19:28 | CARD ---
APPROVED REPORT Date of service: 12/20/2018 EKG Measurement Heart [id number] <Conclusion> Sinus bradycardia with 1st degree AV block Incomplete right bundle branch block Borderline ECG
== END 2018-12-20 14:04 | disposition home or self-care (01) ==
LOC: ED 11:04
DX: K59.00 Constipation, unspecified (principal); K40.90 Unilateral inguinal hernia, without obstruction or gangrene, not specified as recurrent; N32.89 Other specified disorders of bladder; I10 Essential (primary) hypertension
CPT/HCPCS: 71045; 74177; 80053; 81003; 82150; 83690; 84484; 85025; 85610; 85730; 93005; 93975; 96374; 99283; J1885; Q9967

== ENCOUNTER 2019-01-07 08:16 | Outpatient (CLI) | payer MEDICARE, OTHER | END 2019-01-07 08:17 | disposition home or self-care (01) | LOC: CARDIO 08:16 | DX: Z01.818 Encounter for other preprocedural examination (principal); I10 Essential (primary) hypertension; R06.02 Shortness of breath ==